=== PATIENT | female | born 1990 | race Caucasian/White ===

== ENCOUNTER 2017-03-09 16:55 | Emergency (ER) | payer BC ==
[2017-03-09 17:08] VITALS: BP 116/73
--- NOTE | 2017-03-10 23:33 | UC ---
Throat Pain/Nasal Ford HPI - HPI Summary HPI Summary: 26 y/o female presents to the urgent care c/o sore throat, fever, sinus congestion and pain for the past week. symptoms started with nasal congestion and then a dry cough developed. She has Hx of sinusitis. About 2 days ago symptoms got worse with fever, green nasal discharge , sinus pressure, pain, B/ L ear pain and BAUGH. she has taken Sudafed PO and Advil PO w/o any relief of symptoms. Pain is 4/10. Pt denies SOB, chest pain, N/V/D. - History of Current Complaint Chief Complaint: UCGeneralIllness Stated Complaint: COUGH,FEVER Time Seen by Provider: 03/09/17 17:18 Hx Obtained From: Patient Hx Last Menstrual Period: 03/09/17 ?: No Onset/Duration: Gradual Onset, Lasting Weeks - 1 week, Still Present Severity: Moderate Pain Intensity: 4 Pain Scale Used: 0-10 Numeric Cough: Nonproductive Associated Signs & Symptoms: Positive: Dysphagia, Sinus Discomfort, Nasal Discharge, Fever - Epiglottits Risk Factors Epiglottis Risk Factors: Negative - Allergies/Home Medications Allergies/Adverse Reactions: Allergies Allergy/AdvReac Type Severity Reaction Status Date / Time Latex Allergy Swelling Verified 03/09/17 17:05 vicryl sutures Allergy Rash Uncoded 03/09/17 17:05 PMH/Surg Hx/FS Hx/Imm Hx Previously Healthy: Yes Other GI/ History: Over reactive bladder Other Neurological History: Spina Bifida - Surgical History Surgical History: Yes Surgery Procedure, Year, and Place: spinal, orthopedic -numerous, r/t spina bifida - Family History Known Family History: Positive: Hypertension, Diabetes Family History: Dyslipidemia - Social History Occupation: Employed Full-time Lives: With Family Alcohol Use: None Substance Use Type: None Smoking Status (MU): Never Smoked Tobacco - Immunization History Most Recent Tetanus Shot: unknown Review of Systems Constitutional: Fever Skin: Negative Eyes: Negative ENT: Sore Throat, Ear Ache, Nasal Discharge, Sinus Congestion, Sinus Pain/ Tenderness Respiratory: Cough Cardiovascular: Negative Gastrointestinal: Negative Genitourinary: Negative Motor: Negative Neurovascular: Negative Musculoskeletal: Negative Neurological: Headache Psychological: Negative Is Patient Immunocompromised?: No All Other Systems Reviewed And Are Negative: Yes Physical Exam Triage Information Reviewed: Yes Vital Signs: Initial Vital Signs Temp 98.9 F 03/09/17 17:05 Pulse 87 03/09/17 17:05 Resp 16 03/09/17 17:05 BP 116/73 03/09/17 17:05 Pulse Ox 100 03/09/17 17:05 - Additional Comments VITAL SIGNS: Reviewed. GENERAL: Patient is a well developed and nourished female who is sitting comfortable in the examining table. Patient is not in any acute respiratory distress. HEAD AND FACE: No signs of trauma. No ecchymosis, hematomas or skull depressions. B/L maxillary and frontal sinus tenderness on percussion NOSE; erythematous, edematous nasal mucosa w/ yellowish nasal drainage EYES: PERRLA, EOMI x 2, No injected conjunctiva, no nystagmus. No photophobia. EARS: Hearing grossly intact. B/L ear canal impacted with cerum unable to visualize TM's. MOUTH: Positive pharynx with erythema, exudates, palatal petechiae. B/L tonsillar enlargement with exudate. Uvula in midline. NECK: Supple, trachea is midline, Positive anterior cervical lymphadenopathy, no JVD, no carotid bruit, no c-spine tenderness, neck with full ROM. No meningeal signs, no Kernig's or brudzinskis signs. CHEST: Symmetric, no tenderness at palpation LUNGS: Clear to auscultation bilaterally. No wheezing or crackles. CVS: Regular rate and rhythm, S1 and S2 present, no murmurs or gallops appreciated. ABDOMEN: Soft, non-tender. No signs of distention. No rebound no guarding, and no masses palpated. Bowel sounds are normal. EXTREMITIES: FROM in all major joints, no edema, no cyanosis or clubbing. NEURO: Alert and oriented x 3. No acute neurological deficits. Speech is normal and follows commands. SKIN: Dry and warm Throat Pain/Nasal Course/Dx - Course Course Of Treatment: 26 y/o female presents to the urgent care c/o sore throat, fever, sinus congestion and pain for the past week. symptoms started with nasal congestion and then a dry cough developed. She has Hx of sinusitis. About 2 days ago symptoms got worse with fever, green nasal discharge , sinus pressure, pain, B/L ear pain and BAUGH. she has taken Sudafed PO and Advil PO w/ o any relief of symptoms. Pain is 4/10. Pt denies SOB, chest pain, N/V/D.HX obtained. Pt with acute sinusitis , pharyngitis and Cerumen impaction on examiantion. Pt with 1 week of symptoms getting worse. Hx of sinusitis. Pt Rx Amoxicillin PO and flonase nasal spray. CArbamide Peroxide otic to soften crumen. No ear irrigation ordered due to Pt symptoms. Discharge instructions explained to Pt. Advised to Return to the clinic or PCP if symptoms do not improve.Pt understood and agreed with plan of care. - Differential Dx/Diagnosis Differential Diagnosis/HQI/PQRI: Influenza, Laryngitis, Mononucleosis, Otitis Media, Peritonsillar Abscess, Pharyngitis, Sinusitis, Tonsillitis, URI Provider Diagnoses: 1- Acute sinusitis. 2-Pharyngitis. 3- B/L ear with cerumen impaction Discharge - Discharge Plan Condition: Stable Disposition: HOME Prescriptions: Amoxicillin PO (*) [Amoxicillin 875 MG (*)] 875 mg PO BID #20 tab Carbamide Peroxide 6.5% OTIC* [DEBROX 6.5% Otic*] 5 drop BOTH EARS BID #1 bottle Fluticasone NASAL SPRAY 50MCG* [Flonase NASAL SPRAY 50MCG*] 2 spray BOTH NARES DAILY #1 btl Ibuprofen TAB* [Motrin TAB* 600 MG] 600 mg PO Q6H PRN #20 tab PRN Reason: Pain Patient Education Materials: Pharyngitis (ED), Sinusitis (ED), Cerumen Impaction (ED) Referrals: Noemi Barnett [Medical Doctor] - If Needed Additional Instructions: 1- Please increase fluid intake and rest. take full course of antibiotic to avoid resistance 2-Use Flonase as directed to help drain fluid. Also buy saline drops to clear sinuses. 3-Take Sudafed or Claritine PO OTC to alleviates sinus congestion 4-Return to the clinic or PCP if symptoms do not improve for further management and treatment 5- Apply otic drops as directed to soften cerumen.
== END 2017-03-09 17:45 | disposition home or self-care (01) ==
LOC: UCCORT 16:55
DX: J01.90 Acute sinusitis, unspecified (principal); H61.23 Impacted cerumen, bilateral; J02.9 Acute pharyngitis, unspecified; Q05.9 Spina bifida, unspecified; Z91.040 Latex allergy status; Z91.048 Other nonmedicinal substance allergy status
CPT/HCPCS: 99212; G0463

== ENCOUNTER 2017-07-25 07:44 | Emergency (ER) | payer BC ==
[2017-07-25 08:08] VITALS: BP 119/80
--- NOTE | 2017-07-25 08:55 | UC ---
Hand/Wrist HPI - HPI Summary HPI Summary: 26 year old female with left wrist pain . c/o left radial wrist pain with some numbness/tingling x 1 week. Denies any injury. Per pt (+) Melissa test. repetitive movemetn at work [ End ] - History Of Current Complaint Chief Complaint: UCUpperExtremity Stated Complaint: LEFT WRIST PAIN Time Seen by Provider: 07/25/17 08:33 Hx Obtained From: Patient Hx Last Menstrual Period: 07/08/17 Onset/Duration: Gradual Onset Pain Intensity: 5 Aggravating Factor(s): Movement Alleviating Factor(s): Nothing Associated Signs And Symptoms: Positive: Negative - Allergies/Home Medications Allergies/Adverse Reactions: Allergies Allergy/AdvReac Type Severity Reaction Status Date / Time latex Allergy Swelling Verified 07/25/17 08:05 vicryl sutures Allergy Rash Uncoded 07/25/17 08:05 PMH/Surg Hx/FS Hx/Imm Hx Previously Healthy: Yes - Surgical History Surgical History: Yes Surgery Procedure, Year, and Place: spinal, orthopedic -numerous, r/t spina bifida. right and left ankle surgeries - Family History Known Family History: Positive: Hypertension, Diabetes Family History: Dyslipidemia - Social History Occupation: Employed Full-time Alcohol Use: Rare Substance Use Type: None Smoking Status (MU): Never Smoked Tobacco - Immunization History Most Recent Tetanus Shot: unknown Review of Systems Musculoskeletal: Arthralgia Neurological: Numbness Is Patient Immunocompromised?: No All Other Systems Reviewed And Are Negative: Yes Physical Exam Triage Information Reviewed: Yes Appearance: Well-Appearing, No Pain Distress, Well-Nourished Vital Signs: Initial Vital Signs Temp 98 F 07/25/17 08:02 Pulse 74 07/25/17 08:02 Resp 16 07/25/17 08:02 BP 119/80 07/25/17 08:02 Pulse Ox 100 07/25/17 08:02 Vital Signs Reviewed: Yes Eyes: Positive: Conjunctiva Clear Respiratory: Positive: Chest non-tender, Lungs clear, Normal breath sounds Cardiovascular: Positive: RRR, No Murmur, Pulses Normal Musculoskeletal: Positive: Strength Intact, ROM Intact, Other: - (+) Melissa mild Neurological Exam: Normal Psychological Exam: Normal Skin Exam: Normal Hand/Wrist Course/Dx - Differential Dx/Diagnosis Differential Diagnosis/HQI/PQRI: Sprain, Strain, Tenosynovitis Provider Diagnoses: de Quervains tenosynovitis left wrist Discharge - Discharge Plan Condition: Good Disposition: HOME Patient Education Materials: De Quervain Disease (ED) Forms: *Gen. Provider Communication Referrals: Rahat Haynes MD [Medical Doctor] - If Needed (ortho referral ) ULISES Kirk [Primary Care Provider] -
== END 2017-07-25 09:02 | disposition home or self-care (01) ==
LOC: UCCORT 07:44
DX: M65.4 Radial styloid tenosynovitis [de Quervain] (principal); X50.3XXA Overexertion from repetitive movements, initial encounter; Y93.9 Activity, unspecified; Y92.9 Unspecified place or not applicable; Z91.040 Latex allergy status; Z91.048 Other nonmedicinal substance allergy status
CPT/HCPCS: 99212; G0463